=== PATIENT | male | born 1985 | race Caucasian/White ===

== ENCOUNTER 2018-06-29 07:33 | Observation (INO) | payer OTHER ==
[2018-06-29] MEDS ORDERED: NS 0.9% 1000 ML* 1,000 ML IV ONE (07:51)
[2018-06-29 08:16] LABS: ABS Basophils 0.1 10^3/ul (0-0.2); ABS Eosinophils 0 10^3/ul (0-0.6); ABS Lymphocytes 1.8 10^3/ul (1.0-4.8); ABS Monocytes 1.2 10^3/ul (0-0.8); ABS Neutrophils 12.7 10^3/ul (1.5-7.7); ABS Nucleated RBC 0 10^3/ul; Eosinophil % 0 % (0-6); Hematocrit 44 % (42-52); Hemoglobin 14.9 g/dl (14.0-18.0); Lymphocyte % 11.4 % (25-47); Mean Corpuscular HGB Conc 34 g/dl (31-36); Mean Corpuscular Hemoglobin 31 pg (27-31); Mean Corpuscular Volume 92 fL (80-94); Mean Platelet Volume 9.1 um3 (7.4-10.4); Nucleated Red Blood Cells % 0; Platelet Count 218 10^3/ul (150-450); Red Blood Count 4.83 10^6/ul (4.00-5.40); Red Cell Distribution Width 14 % (10.5-15); White Blood Count 15.8 10^3/ul (3.5-10.8)
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
[2018-06-29 10:34] LABS: EGFR Non-African American 79.2 (>60)
[2018-06-29] MEDS ORDERED: Iohexol 300* (CONTRAST) 10 ML SDV IV ONE (10:39)
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
[2018-06-29] MEDS ORDERED: Ibuprofen TAB* 600 MG PO ONE (11:17)
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
[2018-06-29] MEDS ORDERED: Lidocaine 1%* 5 ML VIAL ONE (13:17)
[2018-06-29] MEDS ORDERED: Piperacillin/Tazobac ADVAN(*) 3.375 GM in NS 0.9% 100 ML* 100 ML IVPB ONE (13:27)
[2018-06-29] MEDS ORDERED: Acetaminophen TAB* 325 MG PO PRN (13:38)
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
[2018-06-29] MEDS ORDERED: Levofloxacin 500 MG IVPREMIX(* 500 MG/100 ML BAG IVPB SCH (16:30)
[2018-06-29] MEDS: Ibuprofen TAB* 600 MG PO PRN (20:58)
[2018-06-30 05:46] LABS: ABS Basophils 0 10^3/ul (0-0.2); ABS Eosinophils 0.1 10^3/ul (0-0.6); ABS Lymphocytes 1.9 10^3/ul (1.0-4.8); ABS Neutrophils 5.7 10^3/ul (1.5-7.7); ABS Nucleated RBC 0 10^3/ul; Eosinophil % 1.5 % (0-6); Hematocrit 41 % (42-52); Hemoglobin 13.9 g/dl (14.0-18.0); Lymphocyte % 21.8 % (25-47); Mean Corpuscular HGB Conc 34 g/dl (31-36); Mean Corpuscular Hemoglobin 31 pg (27-31); Mean Corpuscular Volume 92 fL (80-94); Nucleated Red Blood Cells % 0.1; Platelet Count 192 10^3/ul (150-450); Red Blood Count 4.49 10^6/ul (4.00-5.40); Red Cell Distribution Width 14 % (10.5-15); White Blood Count 8.7 10^3/ul (3.5-10.8)
[2018-06-30 07:39] VITALS: BP 122/61
--- NOTE | 2018-06-30 08:36 | RAD ---
INDICATION: Follow-up pneumothorax COMPARISON: Chest x-ray June 29, 2018 TECHNIQUE: PA and lateral views of the chest were obtained. FINDINGS: The heart and mediastinum are normal in size and contour. There is a small left-sided pneumothorax with the lung apex measuring just under 2 cm from the apex of the left chest wall. Otherwise the lungs are grossly clear. There is no evidence of large pleural effusion. Visualized bones are normal for the patient's age. There is no radiographic evidence of free air beneath the diaphragm IMPRESSION: SMALL LEFT-SIDED PNEUMOTHORAX SIMILAR IN APPEARANCE TO THE CHEST X-RAY ACQUIRED 2017 AT 1329 HOURS
[2018-06-30] MEDS: Ibuprofen TAB* 600 MG PO PRN (09:14)
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
== END 2018-06-30 10:10 | disposition home or self-care (01) ==
LOC: ED 07:33 → EEVIPCON 14:39 → SSU 14:39
PROVIDERS: ADMIT Surgery; ATTEND Surgery
PROC: 0W9800Z Drainage of Chest Wall with Drainage Device, Open Approach (ICD-10-PCS; principal; 2018-06-29)
DX: S27.0XXA Traumatic pneumothorax, initial encounter (principal); X99.9XXA Assault by unspecified sharp object, initial encounter; Y92.9 Unspecified place or not applicable; Z87.891 Personal history of nicotine dependence
CPT/HCPCS: 12031; 36415; 71045; 71046; 71260; 80053; 83605; 85025; 86140; 93005; 96365; 99284; A9270-GY; G0378; J1956; J2543; Q9967